=== PATIENT | female | born 1960 | race African-American/Black ===

== ENCOUNTER 2021-06-16 14:36 | Inpatient (IN) ==
[2021-06-16] MEDS ORDERED: BISACODYL 5 MG TABLET PO PRN (14:38)
[2021-06-16] MEDS ORDERED: ACETAMINOPHEN 325 MG TABLET PO PRN (14:38)
[2021-06-16] MEDS ORDERED: MAGNESIUM HYDROXIDE SUSP 30 ML UDCUP PO PRN (14:38)
[2021-06-16] MEDS ORDERED: ONDANSETRON 4 MG/2 ML VIAL IV PRN (14:38)
[2021-06-16] MEDS ORDERED: PROMETHAZINE 25 MG TABLET PO PRN (14:38)
[2021-06-16] MEDS ORDERED: cloNIDine 0.1 MG TABLET PO PRN (14:46)
[2021-06-16 17:47] LABS: Basophils % 0.3 % (0.0-0.8); Hematocrit 37.3 VOL% (35.7-47.0); Hemoglobin 12.2 GM/DL (12.0-16.0); Immature Granulocytes % 6.1 %; Immature Granulocytes Absolute 0.57 #; Lymphocytes # 0.5 10*3/uL (1.4-4.0); Lymphocytes % 5.3 % (21.3-54.2); Mean Corpuscular HGB Conc 32.7 GM/DL (32-36); Mean Corpuscular Volume 85.6 FL (87-102); Monocytes % 6.6 % (1.7-12.7); NRBC # 0.43 10*3/uL; Neutrophils % 81.7 % (38.7-73.9); Platelet Count 205 T/CUMM (130-400); Red Blood Count 4.36 MC/CUMM (3.8-5.5); Red Cell Distribution Width 13.4 % (9.3-17.3); White Blood Count 9.3 T/CUMM (4-12)
[2021-06-16 18:33] LABS: Lymphocytes 6 % (20-55); Metamyelocytes 1 %; Nucleated Red Blood Cells 5 (0-5); Segmented Neutrophils 84 % (50-85); Total Cells Counted 100
[2021-06-16 18:34] LABS: Anisocytosis Slight; Atypical Lymphocytes Few; Elliptocytes Few; Microcytosis Slight; Platelet Estimate Normal; Poikilocytosis Few; Polychromasia 1+
[2021-06-16 18:46] LABS: Alanine Aminotransferase 50 U/L (13-56); Albumin 2.4 G/DL (3.4-5.0); Alkaline Phosphatase 69 U/L (45-117); Aspartate Amino Transferase 43 U/L (0-37); Bilirubin,Total < 0.39 MG/DL (0.20-1.00); Blood Urea Nitrogen 36 MG/DL (7-18); Calcium 9.4 MG/DL (8.5-10.1); Carbon Dioxide 24 MMOL/L (21-32); Estimated Glom Filtration Rate 73 ML/MIN; Glucose 163 MG/DL (74-106); Osmolality,Calculated 292.3 MOS/KG (273-304); Potassium 2.7 MMOL/L (3.5-5.1); Sodium 141 MMOL/L (136-145); Total Protein 5.9 G/DL (6.4-8.2)
[2021-06-16] MEDS: carvediloL 6.25 MG TABLET PO SCH (19:21)
[2021-06-16 19:35] LABS: Bacteria,Urine Occasional /HPF (Few); Bilirubin,Urine Negative (Negative); Blood, Urine Small mg/dL (Negative); Glucose,Urine (UA) Negative (Negative); Hyaline Casts,Urine 4 /LPF (0-3); Ketones,Urine Negative (Negative); Mucus,Urine Occasional /LPF (Occasional); Nitrite,Urine Negative (Negative); Protein,Urine >=500 MG/DL; RBC,Urine 4 /HPF (0-4); Squamous Epithelial Cell,Urine Occasional /HPF (0-10); Urine Appearance Slightly Hazy (Clear); Urine Color Yellow (Yellow); Urine Specific Gravity 1.013 (1.001-1.035); Urine Urobilinogen < 2.0 EU/DL (<2.0)
[2021-06-16 20:02] LABS: Creatinine Ur Quant Random 104 MG/DL; Microalbum Ur Quant Random > 340.0 MG/L (0-20); Microalbum/Creat Ratio Random 326.9 RATIO (0-30)
[2021-06-17] MEDS: predniSONE 20 MG TABLET PO SCH (09:10)
[2021-06-17] MEDS: carvediloL 6.25 MG TABLET PO SCH (09:11)
[2021-06-17] MEDS: PANTOPRAZOLE 40 MG TABLET PO SCH (09:11)
[2021-06-17] MEDS: HYDROXYCHLOROQUINE 200 MG TABLET PO SCH (09:11)
[2021-06-17] MEDS: amLODIPine 10 MG TABLET PO SCH (09:11)
[2021-06-17] MEDS: carvediloL 12.5 MG TABLET PO SCH (17:36)
[2021-06-17] MEDS: POTASSIUM CHLORIDE 10 MEQ TABLET PO SCH (20:36)
[2021-06-17] MEDS: azaTHIOprine 50 MG TABLET PO SCH (20:36)
[2021-06-18 07:37] VITALS: BP 149/95
[2021-06-18] MEDS: carvediloL 12.5 MG TABLET PO SCH (09:08)
[2021-06-18] MEDS: PANTOPRAZOLE 40 MG TABLET PO SCH (09:08)
[2021-06-18] MEDS: amLODIPine 10 MG TABLET PO SCH (09:09)
[2021-06-18] MEDS: HYDROXYCHLOROQUINE 200 MG TABLET PO SCH (09:09)
[2021-06-18] MEDS: predniSONE 20 MG TABLET PO SCH (09:10)
[2021-06-18] MEDS: azaTHIOprine 50 MG TABLET PO SCH (09:10)
[2021-06-18] MEDS: POTASSIUM CHLORIDE 10 MEQ TABLET PO SCH (09:12)
== END 2021-06-18 12:37 | disposition home or self-care (01) | DRG 547 ==
LOC: N.5E 16:32
PROVIDERS: ADMIT Internal Medicine Nephrology; ATTEND Internal Medicine Nephrology